=== PATIENT | female | born 1995 | race Caucasian/White ===

== ENCOUNTER → 2016-10-13 | Outpatient (CLI) | payer BC ==
[2016-10-16 13:25] LABS: CHLAMYDIA TRACH RNA*** NOT DETECTED (NOT DETECTED); GC (NEIS GONORRHOEAE)RNA** NOT DETECTED (NOT DETECTED)
== END | disposition home or self-care (01) ==
LOC: C.LABSPEC 17:47
PROVIDERS: ATTEND Pediatrics
DX: Z11.3 Encounter for screening for infections with a predominantly sexual mode of transmission (principal)

== ENCOUNTER → 2017-01-04 | Outpatient (CLI) | payer BC ==
[2017-01-04 17:39] LABS: COMPLETE YES; EOS % 2.9 %; HEMATOCRIT 41.1 % (37-47); IG% 0.1 %; LYMPH % 32.7 %; LYMPH ABS # 2.26 K/uL (1.2-3.4); MEAN CELL VOLUME 82.2 fL (80-100); MEAN CORPUSCULAR HEMOGLOBIN 28.6 pg (25-34); MEAN CORPUSCULAR HGB CONC 34.8 g/dl (32-36); MEAN PLATELET VOLUME 9.6 fL (7.4-10.4); MONO % 8.4 %; NEUT % 55.9 %; PLATELET COUNT 360 K/uL (130-400); WHITE BLOOD COUNT 6.91 K/uL (4.8-10.8)
== END | disposition home or self-care (01) ==
LOC: C.LABBFT 11:33
PROVIDERS: ATTEND Physician Assistant Medical
DX: L65.9 Nonscarring hair loss, unspecified (principal)

== ENCOUNTER → 2017-01-11 | Outpatient (CLI) | payer BC | END | disposition home or self-care (01) | LOC: C.LABSPEC 17:25 | PROVIDERS: ATTEND Physician Assistant Medical | DX: R30.0 Dysuria (principal) ==

== ENCOUNTER → 2017-10-29 | Outpatient (CLI) | payer OTHER ==
[2017-10-29 10:10] LABS: BASO % 0.2 %; BASO ABS # 0.01 K/uL (0-0.2); EOS % 3.5 %; EOS ABS # 0.23 K/uL (0-0.5); HEMATOCRIT 40.6 % (37-47); HEMOGLOBIN 14.4 g/dL (12.0-16.0); IG# 0.01 K/uL (0.00-0.02); LYMPH % 28.6 %; MEAN CELL VOLUME 84.4 fL (80-100); MEAN CORPUSCULAR HEMOGLOBIN 29.9 pg (25-34); MEAN CORPUSCULAR HGB CONC 35.5 g/dl (32-36); MEAN PLATELET VOLUME 9.5 fL (7.4-10.4); MONO % 6.9 %; MONO ABS # 0.46 K/uL (0.11-0.59); NEUT % 60.6 %; NEUT ABS # 4.04 K/uL (1.4-6.5); PLATELET COUNT 342 K/uL (130-400); RED CELL DISTRIBUTION WIDTH CV 11.9 % (11.5-14.5); RED CELL DISTRIBUTION WIDTH SD 36.5 fL (36.4-46.3); WHITE BLOOD COUNT 6.65 K/uL (4.8-10.8)
[2017-10-29 10:21] LABS: ALT/SGPT 18 U/L (12-78); BLOOD UREA NITROGEN 10 mg/dl (7-18); CALCIUM 9.2 mg/dl (8.5-10.1); CARBON DIOXIDE 23 mmol/L (21-32); CREATININE 0.74 mg/dl (0.60-1.20); GLUCOSE 91 mg/dl (70-99); POTASSIUM 4.1 mmol/L (3.5-5.1); SODIUM 140 mmol/L (136-145)
[2017-10-29 10:31] LABS: ALKALINE PHOSPHATASE 60 U/L (45-117); AST/SGOT 19 U/L (15-37); TOTAL PROTEIN 7.5 gm/dl (6.4-8.2)
== END | disposition home or self-care (01) ==
LOC: C.LAB1850 09:05
PROVIDERS: ATTEND Physician Assistant Medical
DX: G47.00 Insomnia, unspecified (principal)